=== PATIENT | female | born 1995 | race Hispanic/Latino ===

== ENCOUNTER 2018-04-24 21:11 | Inpatient (IN) | payer MEDICAID ==
[2018-04-24] MEDS ORDERED: XYLOCAINE 2% INFILTRATI ONE (21:17)
[2018-04-24] MEDS ORDERED: ePHEDrine SULFATE IV PRN (21:17)
[2018-04-24] MEDS ORDERED: CERVIDIL VG ONE (21:17)
[2018-04-24] MEDS ORDERED: MINERAL OIL PO PRN (21:17)
[2018-04-24] MEDS ORDERED: BRETHINE SUB-Q PRN (21:17)
[2018-04-24] MEDS ORDERED: ZOFRAN IV PRN (21:17)
[2018-04-24] MEDS ORDERED: AMBIEN PO PRN (21:22)
--- NOTE | 2018-04-24 21:28 | History and Physical Report ---
History of Present Illness Date of examination: 04/24/18 Chief complaint: IOL @ 41+2 weeks History of present illness: EDC Calculations by LMP: 04/15/2018 Past History : 2 Para: 0 Aborta: 1 Elect. 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 Infection History Hx of STD: none HIV Risk Eval: no Hepatitis B Risk Eval: low risk Personal hx. of genital herpes: no Partner hx. of genital herpes: no Rash, Viral, or Febrile illness since last LMP? no Varicella/Chicken Pox Status: Immunized TB Risk: no Genetic History Congenital Heart Defect: Mom: no Dad: no Rafaela Disease: Mom: no Dad: no Thalassemia Mom: no Dad: no Neural Tube Defect Mom: no Dad: no Down's Syndrome Mom: no Dad: no Miky-Sachs Mom: no Dad: no Sickle Cell Disease/Trait Mom: no Dad: no Hemophilia Mom: no Dad: no Muscular Dystrophy Mom: no Dad: no Cystic Fibrosis Mom: no Dad: no [place] Chorea Mom: no Dad: no Mental Retardation Mom: no Dad: no Fragile X Mom: no Dad: no Other Genetic/Chromosomal Disorder Mom: no Dad: no Child w/other defect Mom: no Dad: no Enviromental Exposures Xray Exposure: no Medication, drug, or alcohol use since LMP: no Chemical/Other Exposure: no Exposure to Cat Liter: no Hx of Parvovirus (Fifth Disease): no Occupational Exposure to Children: none Active Medications (reviewed today): None Current Allergies (reviewed today): No known allergies Past History Past Medical History: other (see HPI) Past Surgical History: other (see HPI) 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) Family/Genetic History: other (see HPI) - Obstetrical History Expected Date of Delivery: 04/15/18 Actual Gestation: 41 Week(s) 3 Day(s) : 2 Para: 0 Hx # Term Pregnancies: 0 Number of Pregnancies: 0 Spontaneous Abortions: 1 Induced : 0 Number of Living Children: 0 Medications and Allergies Allergies Allergy/AdvReac Type Severity Reaction Status Date / Time No Known Allergies Allergy Unverified 04/24/18 22:16 Home Medications Medication Instructions Recorded Confirmed Last Taken Type Pnv No.95/Ferrous Fum/Folic AC 1 tab PO QDAY 04/25/18 04/25/18 04/18/18 19:00 History [ Vitamins Tablet] Active Meds: Active Medications Dinoprostone (Cervidil) 10 mg VG ONCE ONE Stop: 04/24/18 21:18 Ephedrine Sulfate (Ephedrine Sulfate) 10 mg IV Q2M PRN PRN Reason: Hypotension Lactated Ringer's (Lactated Ringers) 1,000 mls @ 125 mls/hr IV DIRECT SAULO Oxytocin/Sodium Chloride (Pitocin/Ns 20 Unit/1000ml Drip) 20 units in 1,000 mls @ 125 mls/hr IV DIRECT SAULO Lidocaine (Xylocaine 2%) 20 ml INFILTRATI ONCE ONE Stop: 04/24/18 21:18 Mineral Oil (Mineral Oil) 30 ml PO QHS PRN PRN Reason: Constipation Ondansetron HCl (Zofran) 4 mg IV Q8H PRN PRN Reason: Nausea And Vomiting Terbutaline Sulfate (Brethine) 0.25 mg SUB-Q ONCE PRN PRN Reason: Hyperstimulation/Hypertonicity Zolpidem Tartrate (Ambien) 10 mg PO QHS PRN PRN Reason: Insomnia Review of Systems All systems: negative - Physical Exam Cardiovascular: Regular rate Lungs: Positive: Clear to auscultation, Normal air movement Abdomen: Positive: normal appearance, soft Genitourinary (Female): Positive: normal external genitalia Vulva: both: normal Vagina: Positive: normal moisture Uterus: Positive: normal size - Obstetrical FHR: auscultation normal Uterine Contraction Monitor Mode: External Results Result Diagrams: 04/24/18 22:00 All other labs normal. Assessment and Plan 23y/o @ 41+2 weeks admitted to L&D for IOL d/t post dates. GBS NEG, U/S EFW in office yesterday 4290gm (9#7oz) and cephalic. Plan for nurses to place cervidil when staffing allows. Continuous EFM/TOCO, Ambien for sleep PRN. Admission orders in EMR. Dr. Jimenez consulted and aware of plan of care. - Patient Problems (1) 41 weeks gestation of Onset Date: ~04/25/18 Current Visit: Yes Status: Acute
[2018-04-24] MEDS ORDERED: PITOCin/NS 20 UNIT/1000ML DRIP 20 UNITS/1,000 ML BAG IV SCH (22:00)
[2018-04-24 22:27] LABS: Hematocrit 35.4 % (30.3-42.9); Hemoglobin 12.6 gm/dl (10.1-14.3); Mean Corpuscular HGB Conc 36 % (30-34); Mean Corpuscular Hemoglobin 32 pg (28-32); Mean Corpuscular Volume 90 fl (79-97); Platelet Count 197 K/mm3 (140-440); Red Blood Count 3.93 M/mm3 (3.65-5.03); Red Cell Distribution Width 13.5 % (13.2-15.2)
[2018-04-25] MEDS: LACTATED RINGERS 1,000 ML IV SCH ×2 (00:30→13:41)
--- NOTE | 2018-04-25 06:16 | Progress Note ---
Assessment and Plan - Patient Problems (1) 41 weeks gestation of Onset Date: ~04/25/18 Current Visit: Yes Status: Acute Plan to address problem: Cervidil to be removed @ 1130 Will allow AM care and diet. Will make plan for cervidil or pitocin after Cervidil is removed. Reviewed POC with pt Discussed multi day induction Subjective - Subjective Date of service: 04/25/18 (pt resting; states ctx wake her but she can go back to sleep) Patient reports: movement normal Objective - Vital Signs Vital Signs: Vital Signs - 12hr 04/24/18 04/24/18 04/24/18 21:39 21:43 21:48 Temperature 97.8 F Pulse Rate 89 85 84 Respiratory 18 Rate Blood Pressure Blood Pressure 114/63 [Left] O2 Sat by Pulse 98 97 Oximetry 04/24/18 04/24/18 04/24/18 21:53 21:58 22:03 Temperature Pulse Rate 87 90 89 Respiratory Rate Blood Pressure Blood Pressure [Left] O2 Sat by Pulse 98 98 98 Oximetry 04/24/18 04/24/18 04/24/18 22:08 22:18 22:23 Temperature Pulse Rate 87 85 86 Respiratory Rate Blood Pressure Blood Pressure [Left] O2 Sat by Pulse 97 97 97 Oximetry 04/24/18 04/24/18 04/24/18 22:28 22:33 22:38 Temperature Pulse Rate 85 84 86 Respiratory Rate Blood Pressure Blood Pressure [Left] O2 Sat by Pulse 98 97 98 Oximetry 04/24/18 04/24/18 04/24/18 22:43 22:48 22:53 Temperature Pulse Rate 89 97 H 88 Respiratory Rate Blood Pressure Blood Pressure [Left] O2 Sat by Pulse 97 97 97 Oximetry 04/24/18 04/24/18 04/24/18 22:58 23:27 23:32 Temperature Pulse Rate 83 91 H 93 H Respiratory Rate Blood Pressure Blood Pressure [Left] O2 Sat by Pulse 97 97 97 Oximetry 04/24/18 04/24/18 04/24/18 23:37 23:42 23:47 Temperature Pulse Rate 90 91 H 99 H Respiratory Rate Blood Pressure Blood Pressure [Left] O2 Sat by Pulse 96 96 96 Oximetry 04/24/18 04/24/18 04/25/18 23:52 23:57 00:02 Temperature Pulse Rate 78 90 88 Respiratory Rate Blood Pressure Blood Pressure [Left] O2 Sat by Pulse 97 96 96 Oximetry 04/25/18 04/25/18 04/25/18 00:07 00:12 00:17 Temperature Pulse Rate 83 88 81 Respiratory Rate Blood Pressure Blood Pressure [Left] O2 Sat by Pulse 95 97 96 Oximetry 04/25/18 04/25/18 04/25/18 00:22 00:27 00:30 Temperature Pulse Rate 85 85 83 Respiratory Rate Blood Pressure 109/72 Blood Pressure [Left] O2 Sat by Pulse 96 97 Oximetry 04/25/18 04/25/18 04/25/18 00:31 00:32 00:37 Temperature 98.2 F Pulse Rate 86 86 Respiratory Rate Blood Pressure Blood Pressure [Left] O2 Sat by Pulse 96 96 Oximetry 04/25/18 04/25/18 04/25/18 00:42 00:47 00:52 Temperature Pulse Rate 84 83 82 Respiratory Rate Blood Pressure Blood Pressure [Left] O2 Sat by Pulse 96 97 99 Oximetry 04/25/18 04/25/18 04/25/18 00:57 01:02 01:07 Temperature Pulse Rate 81 81 86 Respiratory Rate Blood Pressure Blood Pressure [Left] O2 Sat by Pulse 97 97 97 Oximetry 04/25/18 04/25/18 04/25/18 01:12 01:17 01:22 Temperature Pulse Rate 81 79 81 Respiratory Rate Blood Pressure Blood Pressure [Left] O2 Sat by Pulse 97 98 99 Oximetry 04/25/18 04/25/18 04/25/18 01:27 01:31 01:32 Temperature Pulse Rate 80 78 85 Respiratory Rate Blood Pressure 119/68 Blood Pressure [Left] O2 Sat by Pulse 98 96 Oximetry 04/25/18 04/25/18 04/25/18 01:37 01:42 01:47 Temperature Pulse Rate 84 86 73 Respiratory Rate Blood Pressure Blood Pressure [Left] O2 Sat by Pulse 96 96 97 Oximetry 04/25/18 04/25/18 04/25/18 01:52 01:57 02:02 Temperature Pulse Rate 79 73 77 Respiratory Rate Blood Pressure Blood Pressure [Left] O2 Sat by Pulse 96 98 98 Oximetry 04/25/18 04/25/18 04/25/18 02:07 02:12 02:17 Temperature Pulse Rate 76 75 75 Respiratory Rate Blood Pressure Blood Pressure [Left] O2 Sat by Pulse 98 99 98 Oximetry 04/25/18 04/25/18 04/25/18 02:22 02:27 02:31 Temperature 97.6 F Pulse Rate 79 73 75 Respiratory 16 Rate Blood Pressure 115/66 Blood Pressure 115/66 [Left] O2 Sat by Pulse 98 98 Oximetry 04/25/18 04/25/18 04/25/18 02:32 02:37 02:42 Temperature Pulse Rate 74 81 78 Respiratory Rate Blood Pressure Blood Pressure [Left] O2 Sat by Pulse 98 99 98 Oximetry 04/25/18 04/25/18 04/25/18 02:47 02:52 02:57 Temperature Pulse Rate 77 83 78 Respiratory Rate Blood Pressure Blood Pressure [Left] O2 Sat by Pulse 98 97 98 Oximetry 04/25/18 04/25/18 04/25/18 03:02 03:07 03:12 Temperature Pulse Rate 76 81 88 Respiratory Rate Blood Pressure Blood Pressure [Left] O2 Sat by Pulse 97 96 96 Oximetry 04/25/18 04/25/18 04/25/18 03:17 03:20 03:22 Temperature Pulse Rate 73 80 77 Respiratory Rate Blood Pressure Blood Pressure [Left] O2 Sat by Pulse 97 94 97 Oximetry 04/25/18 04/25/18 04/25/18 03:27 03:30 03:32 Temperature Pulse Rate 85 73 87 Respiratory Rate Blood Pressure 110/56 Blood Pressure [Left] O2 Sat by Pulse 96 97 Oximetry 04/25/18 04/25/18 04/25/18 03:37 03:42 03:47 Temperature Pulse Rate 78 79 78 Respiratory Rate Blood Pressure Blood Pressure [Left] O2 Sat by Pulse 97 95 97 Oximetry 04/25/18 04/25/18 04/25/18 03:52 03:57 04:02 Temperature Pulse Rate 84 85 90 Respiratory Rate Blood Pressure Blood Pressure [Left] O2 Sat by Pulse 99 98 94 Oximetry 04/25/18 04/25/18 04/25/18 04:03 04:07 04:12 Temperature Pulse Rate 91 H 85 98 H Respiratory Rate Blood Pressure Blood Pressure [Left] O2 Sat by Pulse 94 96 95 Oximetry 04/25/18 04/25/18 04/25/18 04:38 04:43 04:48 Temperature Pulse Rate 80 79 87 Respiratory Rate Blood Pressure Blood Pressure [Left] O2 Sat by Pulse 97 96 96 Oximetry 08/10/1204/25/18 04/25/18 04:53 04:58 05:03 Temperature Pulse Rate 81 88 88 Respiratory Rate Blood Pressure Blood Pressure [Left] O2 Sat by Pulse 96 97 100 Oximetry 04/25/18 04/25/18 04/25/18 05:08 05:13 05:18 Temperature Pulse Rate 97 H 95 H 78 Respiratory Rate Blood Pressure Blood Pressure [Left] O2 Sat by Pulse 98 98 96 Oximetry 04/25/18 04/25/18 04/25/18 05:23 05:28 05:33 Temperature Pulse Rate 78 81 82 Respiratory Rate Blood Pressure Blood Pressure [Left] O2 Sat by Pulse 98 96 96 Oximetry 04/25/18 04/25/18 04/25/18 05:38 05:43 05:48 Temperature Pulse Rate 80 81 78 Respiratory Rate Blood Pressure Blood Pressure [Left] O2 Sat by Pulse 96 96 96 Oximetry 04/25/18 04/25/18 04/25/18 05:53 05:58 06:03 Temperature Pulse Rate 81 82 81 Respiratory Rate Blood Pressure Blood Pressure [Left] O2 Sat by Pulse 96 95 96 Oximetry 04/25/18 04/25/18 06:08 06:13 Temperature Pulse Rate 99 H 99 H Respiratory Rate Blood Pressure Blood Pressure [Left] O2 Sat by Pulse 96 98 Oximetry - Exam Breasts: deferred Cardiovascular: Regular rate Lungs: Normal air movement Abdomen: Present: normal appearance, soft. Absent: distention, tenderness Uterus: Present: normal FHR: auscultation normal, category 1 Uterine Contraction Monitor Mode: External Uterine Contraction Pattern: Irregular Uterine Tone Measurement Phase: Resting Uterine Contraction Intensity: Mild Extremities: normal Deep Tendon Reflex Grade: Normal +2 - Labs Labs: Abnormal Labs 04/24/18 22:00 WBC 14.8 H MCHC 36 H Laboratory Results - last 24 hr 04/24/18 04/24/18 22:00 22:00 WBC 14.8 H RBC 3.93 Hgb 12.6 Hct 35.4 MCV 90 MCH 32 MCHC 36 H RDW 13.5 Plt Count 197 Blood Type O POSITIVE Antibody Screen Negative
[2018-04-25] MEDS ORDERED: STADOL IV PRN (09:28)
--- NOTE | 2018-04-25 12:41 | Progress Note ---
Assessment and Plan - Patient Problems (1) 41 weeks gestation of Onset Date: ~04/25/18 Current Visit: Yes Status: Acute Plan to address problem: pt c/o increased pain SVE 6,100,-2 BBOW Will bolus for epidural Discussed with pt and SO that the position of the head is still high, there is concern that operative delivery may still be required. All questions addressed. Will re- eval after epidural. Subjective - Subjective Date of service: 04/25/18 (pt c/o increased pain) Patient reports: movement normal, contractions Objective - Vital Signs Vital Signs: Vital Signs - 12hr 04/25/18 04/25/18 04/25/18 00:42 00:47 00:52 Temperature Pulse Rate 84 83 82 Respiratory Rate Blood Pressure Blood Pressure [Left] O2 Sat by Pulse 96 97 99 Oximetry 04/25/18 04/25/18 04/25/18 00:57 01:02 01:07 Temperature Pulse Rate 81 81 86 Respiratory Rate Blood Pressure Blood Pressure [Left] O2 Sat by Pulse 97 97 97 Oximetry 04/25/18 04/25/18 04/25/18 01:12 01:17 01:22 Temperature Pulse Rate 81 79 81 Respiratory Rate Blood Pressure Blood Pressure [Left] O2 Sat by Pulse 97 98 99 Oximetry 04/25/18 04/25/18 04/25/18 01:27 01:31 01:32 Temperature Pulse Rate 80 78 85 Respiratory Rate Blood Pressure 119/68 Blood Pressure [Left] O2 Sat by Pulse 98 96 Oximetry 04/25/18 04/25/18 04/25/18 01:37 01:42 01:47 Temperature Pulse Rate 84 86 73 Respiratory Rate Blood Pressure Blood Pressure [Left] O2 Sat by Pulse 96 96 97 Oximetry 04/25/18 04/25/18 04/25/18 01:52 01:57 02:02 Temperature Pulse Rate 79 73 77 Respiratory Rate Blood Pressure Blood Pressure [Left] O2 Sat by Pulse 96 98 98 Oximetry 04/25/18 04/25/18 04/25/18 02:07 02:12 02:17 Temperature Pulse Rate 76 75 75 Respiratory Rate Blood Pressure Blood Pressure [Left] O2 Sat by Pulse 98 99 98 Oximetry 04/25/18 04/25/18 04/25/18 02:22 02:27 02:31 Temperature 97.6 F Pulse Rate 79 73 75 Respiratory 16 Rate Blood Pressure 115/66 Blood Pressure 115/66 [Left] O2 Sat by Pulse 98 98 Oximetry 04/25/18 04/25/18 04/25/18 02:32 02:37 02:42 Temperature Pulse Rate 74 81 78 Respiratory Rate Blood Pressure Blood Pressure [Left] O2 Sat by Pulse 98 99 98 Oximetry 04/25/18 04/25/18 04/25/18 02:47 02:52 02:57 Temperature Pulse Rate 77 83 78 Respiratory Rate Blood Pressure Blood Pressure [Left] O2 Sat by Pulse 98 97 98 Oximetry 04/25/18 04/25/18 04/25/18 03:02 03:07 03:12 Temperature Pulse Rate 76 81 88 Respiratory Rate Blood Pressure Blood Pressure [Left] O2 Sat by Pulse 97 96 96 Oximetry 04/25/18 04/25/18 04/25/18 03:17 03:20 03:22 Temperature Pulse Rate 73 80 77 Respiratory Rate Blood Pressure Blood Pressure [Left] O2 Sat by Pulse 97 94 97 Oximetry 04/25/18 04/25/18 04/25/18 03:27 03:30 03:32 Temperature Pulse Rate 85 73 87 Respiratory Rate Blood Pressure 110/56 Blood Pressure [Left] O2 Sat by Pulse 96 97 Oximetry 04/25/18 04/25/18 04/25/18 03:37 03:42 03:47 Temperature Pulse Rate 78 79 78 Respiratory Rate Blood Pressure Blood Pressure [Left] O2 Sat by Pulse 97 95 97 Oximetry 04/25/18 04/25/18 04/25/18 03:52 03:57 04:02 Temperature Pulse Rate 84 85 90 Respiratory Rate Blood Pressure Blood Pressure [Left] O2 Sat by Pulse 99 98 94 Oximetry 04/25/18 04/25/18 04/25/18 04:03 04:07 04:12 Temperature Pulse Rate 91 H 85 98 H Respiratory Rate Blood Pressure Blood Pressure [Left] O2 Sat by Pulse 94 96 95 Oximetry 04/25/18 04/25/18 04/25/18 04:38 04:43 04:48 Temperature Pulse Rate 80 79 87 Respiratory Rate Blood Pressure Blood Pressure [Left] O2 Sat by Pulse 97 96 96 Oximetry 04/25/18 04/25/18 04/25/18 04:53 04:58 05:03 Temperature Pulse Rate 81 88 88 Respiratory Rate Blood Pressure Blood Pressure [Left] O2 Sat by Pulse 96 97 100 Oximetry 04/25/18 04/25/18 04/25/18 05:08 05:13 05:18 Temperature Pulse Rate 97 H 95 H 78 Respiratory Rate Blood Pressure Blood Pressure [Left] O2 Sat by Pulse 98 98 96 Oximetry 04/25/18 04/25/18 04/25/18 05:23 05:28 05:33 Temperature Pulse Rate 78 81 82 Respiratory Rate Blood Pressure Blood Pressure [Left] O2 Sat by Pulse 98 96 96 Oximetry 04/25/18 04/25/18 04/25/18 05:38 05:43 05:48 Temperature Pulse Rate 80 81 78 Respiratory Rate Blood Pressure Blood Pressure [Left] O2 Sat by Pulse 96 96 96 Oximetry 04/25/18 04/25/18 04/25/18 05:53 05:58 06:03 Temperature Pulse Rate 81 82 81 Respiratory Rate Blood Pressure Blood Pressure [Left] O2 Sat by Pulse 96 95 96 Oximetry 04/25/18 04/25/18 04/25/18 06:08 06:13 06:18 Temperature Pulse Rate 99 H 99 H 83 Respiratory Rate Blood Pressure Blood Pressure [Left] O2 Sat by Pulse 96 98 95 Oximetry 04/25/18 04/25/18 04/25/18 06:23 06:25 06:28 Temperature Pulse Rate 85 82 84 Respiratory Rate Blood Pressure Blood Pressure [Left] O2 Sat by Pulse 96 94 95 Oximetry 04/25/18 04/25/18 04/25/18 06:31 06:33 06:37 Temperature Pulse Rate 89 85 86 Respiratory Rate Blood Pressure Blood Pressure [Left] O2 Sat by Pulse 94 95 94 Oximetry 04/25/18 04/25/18 04/25/18 06:38 06:43 06:48 Temperature Pulse Rate 86 112 H 86 Respiratory Rate Blood Pressure Blood Pressure [Left] O2 Sat by Pulse 95 95 96 Oximetry 04/25/18 04/25/18 04/25/18 06:53 06:58 07:03 Temperature Pulse Rate 83 88 92 H Respiratory Rate Blood Pressure Blood Pressure [Left] O2 Sat by Pulse 96 97 96 Oximetry 04/25/18 04/25/18 04/25/18 07:04 07:08 08:08 Temperature Pulse Rate 88 104 H 109 H Respiratory Rate Blood Pressure 120/56 116/56 Blood Pressure [Left] O2 Sat by Pulse 97 Oximetry 04/25/18 04/25/18 04/25/18 08:31 09:30 10:30 Temperature Pulse Rate 110 H 101 H 88 Respiratory Rate Blood Pressure 116/59 124/80 106/55 Blood Pressure [Left] O2 Sat by Pulse Oximetry 04/25/18 04/25/18 11:32 12:30 Temperature Pulse Rate 75 86 Respiratory Rate Blood Pressure 115/57 119/58 Blood Pressure [Left] O2 Sat by Pulse Oximetry - Exam Breasts: deferred Cardiovascular: Regular rate Lungs: Normal air movement Abdomen: Present: normal appearance, soft. Absent: distention, tenderness Uterus: Present: normal FHR: auscultation normal, category 1 Uterine Contraction Monitor Mode: External Cervical Dilatation: 6 (BBOW) Cervical Effacement Percentage: 100 (requesting epidural Bolus started) station: -2 Uterine Contraction Pattern: Regular Uterine Tone Measurement Phase: Contraction Uterine Contraction Intensity: Moderate Extremities: normal Deep Tendon Reflex Grade: Normal +2 - Labs Labs: Abnormal Labs 04/24/18 22:00 WBC 14.8 H MCHC 36 H Laboratory Results - last 24 hr 04/24/18 04/24/18 04/24/18 22:00 22:00 22:00 WBC 14.8 H RBC 3.93 Hgb 12.6 Hct 35.4 MCV 90 MCH 32 MCHC 36 H RDW 13.5 Plt Count 197 RPR Nonreactive Blood Type O POSITIVE Antibody Screen Negative
[2018-04-25] MEDS ORDERED: PITOCin/NS 30 UNIT/500ML 30 UNITS/500 ML BAG IV SCH (13:00)
[2018-04-25] MEDS ORDERED: ePHEDrine SULFATE IV PRN (14:34)
[2018-04-25] MEDS ORDERED: NARCAN 2 MG/2 ML IV PRN (14:34)
--- NOTE | 2018-04-25 14:34 | Anesthesia Consultation ---
Anesthesia Consult and Med Hx Date of service: 04/25/18 - Airway Anesthetic Teeth Evaluation: Good ROM Head & Neck: Adequate Mental/Hyoid Distance: Adequate Mallampati Class: Class II Intubation Access Assessment: Probably Good - Pre-Operative Health Status ASA Pre-Surgery Classification: ASA2 Proposed Anesthetic Plan: Epidural, Spinal - Pulmonary Hx Asthma: No Hx Pneumonia: No - Cardiovascular System Hx Hypertension: No - Central Nervous System Hx Seizures: No Hx Psychiatric Problems: No - Endocrine Hx Renal Disease: No Hx End Stage Renal Disease: No Hx Hypothyroidism: No Hx Hyperthyroidism: No - Hematic Hx Anemia: No Hx Sickle Cell Disease: No - Other Systems Hx Alcohol Use: No Hx Obesity: Yes
--- NOTE | 2018-04-25 14:39 | Progress Note ---
Assessment and Plan - Patient Problems (1) 41 weeks gestation of Onset Date: ~04/25/18 Current Visit: Yes Status: Acute Plan to address problem: Comfortable with epidural SVE 7,100,-2 Start pitocin per protocol. Re-eval as needed Subjective - Subjective Date of service: 04/25/18 (SROM thick meconium; comfortable with epidural) Patient reports: movement normal, contractions Objective - Vital Signs Vital Signs: Vital Signs - 12hr 04/25/18 04/25/18 04/25/18 02:42 02:47 02:52 Pulse Rate 78 77 83 Blood Pressure O2 Sat by Pulse 98 98 97 Oximetry 04/25/18 04/25/18 04/25/18 02:57 03:02 03:07 Pulse Rate 78 76 81 Blood Pressure O2 Sat by Pulse 98 97 96 Oximetry 04/25/18 04/25/18 04/25/18 03:12 03:17 03:20 Pulse Rate 88 73 80 Blood Pressure O2 Sat by Pulse 96 97 94 Oximetry 04/25/18 04/25/18 04/25/18 03:22 03:27 03:30 Pulse Rate 77 85 73 Blood Pressure 110/56 O2 Sat by Pulse 97 96 Oximetry 04/25/18 04/25/18 04/25/18 03:32 03:37 03:42 Pulse Rate 87 78 79 Blood Pressure O2 Sat by Pulse 97 97 95 Oximetry 04/25/18 04/25/18 04/25/18 03:47 03:52 03:57 Pulse Rate 78 84 85 Blood Pressure O2 Sat by Pulse 97 99 98 Oximetry 04/25/18 04/25/18 04/25/18 04:02 04:03 04:07 Pulse Rate 90 91 H 85 Blood Pressure O2 Sat by Pulse 94 94 96 Oximetry 04/25/18 04/25/18 04/25/18 04:12 04:38 04:43 Pulse Rate 98 H 80 79 Blood Pressure O2 Sat by Pulse 95 97 96 Oximetry 04/25/18 04/25/18 04/25/18 04:48 04:53 04:58 Pulse Rate 87 81 88 Blood Pressure O2 Sat by Pulse 96 96 97 Oximetry 04/25/18 04/25/18 04/25/18 05:03 05:08 05:13 Pulse Rate 88 97 H 95 H Blood Pressure O2 Sat by Pulse 100 98 98 Oximetry 04/25/18 04/25/18 04/25/18 05:18 05:23 05:28 Pulse Rate 78 78 81 Blood Pressure O2 Sat by Pulse 96 98 96 Oximetry 04/25/18 04/25/18 04/25/18 05:33 05:38 05:43 Pulse Rate 82 80 81 Blood Pressure O2 Sat by Pulse 96 96 96 Oximetry 04/25/18 04/25/18 04/25/18 05:48 05:53 05:58 Pulse Rate 78 81 82 Blood Pressure O2 Sat by Pulse 96 96 95 Oximetry 04/25/18 04/25/18 04/25/18 06:03 06:08 06:13 Pulse Rate 81 99 H 99 H Blood Pressure O2 Sat by Pulse 96 96 98 Oximetry 04/25/18 04/25/18 04/25/18 06:18 06:23 06:25 Pulse Rate 83 85 82 Blood Pressure O2 Sat by Pulse 95 96 94 Oximetry 04/25/18 04/25/18 04/25/18 06:28 06:31 06:33 Pulse Rate 84 89 85 Blood Pressure O2 Sat by Pulse 95 94 95 Oximetry 04/25/18 04/25/18 04/25/18 06:37 06:38 06:43 Pulse Rate 86 86 112 H Blood Pressure O2 Sat by Pulse 94 95 95 Oximetry 04/25/18 04/25/18 04/25/18 06:48 06:53 06:58 Pulse Rate 86 83 88 Blood Pressure O2 Sat by Pulse 96 96 97 Oximetry 04/25/18 04/25/18 04/25/18 07:03 07:04 07:08 Pulse Rate 92 H 88 104 H Blood Pressure 120/56 O2 Sat by Pulse 96 97 Oximetry 04/25/18 04/25/18 04/25/18 08:08 08:31 09:30 Pulse Rate 109 H 110 H 101 H Blood Pressure 116/56 116/59 124/80 O2 Sat by Pulse Oximetry 04/25/18 04/25/18 04/25/18 10:30 11:32 12:30 Pulse Rate 88 75 86 Blood Pressure 106/55 115/57 119/58 O2 Sat by Pulse Oximetry 04/25/18 04/25/18 04/25/18 13:33 14:06 14:11 Pulse Rate 88 95 H 96 H Blood Pressure 115/70 119/61 O2 Sat by Pulse 96 97 Oximetry 04/25/18 04/25/18 04/25/18 14:16 14:21 14:26 Pulse Rate 92 H 98 H 91 H Blood Pressure O2 Sat by Pulse 97 96 97 Oximetry 04/25/18 04/25/18 04/25/18 14:29 14:31 14:32 Pulse Rate 83 94 H 98 H Blood Pressure 118/65 108/70 O2 Sat by Pulse 97 Oximetry 04/25/18 04/25/18 04/25/18 14:35 14:36 14:38 Pulse Rate 94 H 94 H 106 H Blood Pressure 113/68 106/61 O2 Sat by Pulse 97 Oximetry - Exam Breasts: deferred Cardiovascular: Regular rate Lungs: Normal air movement Abdomen: Present: normal appearance, soft. Absent: distention, tenderness Uterus: Present: normal FHR: auscultation normal, category 1 Uterine Contraction Monitor Mode: External Cervical Dilatation: 7 (thick meconium; SROM) Cervical Effacement Percentage: 100 station: -2 Uterine Contraction Pattern: Irregular Uterine Tone Measurement Phase: Resting Uterine Contraction Intensity: Mild Extremities: normal Deep Tendon Reflex Grade: Normal +2 - Labs Labs: Abnormal Labs 04/24/18 22:00 WBC 14.8 H MCHC 36 H Laboratory Results - last 24 hr 04/24/18 04/24/18 04/24/18 22:00 22:00 22:00 WBC 14.8 H RBC 3.93 Hgb 12.6 Hct 35.4 MCV 90 MCH 32 MCHC 36 H RDW 13.5 Plt Count 197 RPR Nonreactive Blood Type O POSITIVE Antibody Screen Negative
[2018-04-25] MEDS ORDERED: fentaNYL-BUPIV 2 MCG/ML-0.125% 200 MCG/100 ML BAG EPIDURAL SCH (15:00)
--- NOTE | 2018-04-25 16:21 | Progress Note ---
Assessment and Plan - Patient Problems (1) 41 weeks gestation of Onset Date: ~04/25/18 Current Visit: Yes Status: Acute Plan to address problem: Ctx not recording well Internal monitors placed SVE 7,100,0 Pit @ 12mu Re-eval as needed. Subjective - Subjective Date of service: 04/25/18 (comfortable with epidural) Patient reports: movement normal, contractions Objective - Vital Signs Vital Signs: Vital Signs - 12hr 04/25/18 04/25/18 04/25/18 04:38 04:43 04:48 Pulse Rate 80 79 87 Blood Pressure O2 Sat by Pulse 97 96 96 Oximetry 04/25/18 04/25/18 04/25/18 04:53 04:58 05:03 Pulse Rate 81 88 88 Blood Pressure O2 Sat by Pulse 96 97 100 Oximetry 04/25/18 04/25/18 04/25/18 05:08 05:13 05:18 Pulse Rate 97 H 95 H 78 Blood Pressure O2 Sat by Pulse 98 98 96 Oximetry 04/25/18 04/25/18 04/25/18 05:23 05:28 05:33 Pulse Rate 78 81 82 Blood Pressure O2 Sat by Pulse 98 96 96 Oximetry 04/25/18 04/25/18 04/25/18 05:38 05:43 05:48 Pulse Rate 80 81 78 Blood Pressure O2 Sat by Pulse 96 96 96 Oximetry 04/25/18 04/25/18 04/25/18 05:53 05:58 06:03 Pulse Rate 81 82 81 Blood Pressure O2 Sat by Pulse 96 95 96 Oximetry 04/25/18 04/25/18 04/25/18 06:08 06:13 06:18 Pulse Rate 99 H 99 H 83 Blood Pressure O2 Sat by Pulse 96 98 95 Oximetry 04/25/18 04/25/18 04/25/18 06:23 06:25 06:28 Pulse Rate 85 82 84 Blood Pressure O2 Sat by Pulse 96 94 95 Oximetry 04/25/18 04/25/18 04/25/18 06:31 06:33 06:37 Pulse Rate 89 85 86 Blood Pressure O2 Sat by Pulse 94 95 94 Oximetry 04/25/18 04/25/18 04/25/18 06:38 06:43 06:48 Pulse Rate 86 112 H 86 Blood Pressure O2 Sat by Pulse 95 95 96 Oximetry 04/25/18 04/25/18 04/25/18 06:53 06:58 07:03 Pulse Rate 83 88 92 H Blood Pressure O2 Sat by Pulse 96 97 96 Oximetry 04/25/18 04/25/18 04/25/18 07:04 07:08 08:08 Pulse Rate 88 104 H 109 H Blood Pressure 120/56 116/56 O2 Sat by Pulse 97 Oximetry 04/25/18 04/25/18 04/25/18 08:31 09:30 10:30 Pulse Rate 110 H 101 H 88 Blood Pressure 116/59 124/80 106/55 O2 Sat by Pulse Oximetry 04/25/18 04/25/18 04/25/18 11:32 12:30 13:33 Pulse Rate 75 86 88 Blood Pressure 115/57 119/58 115/70 O2 Sat by Pulse Oximetry 04/25/18 04/25/18 04/25/18 14:06 14:11 14:16 Pulse Rate 95 H 96 H 92 H Blood Pressure 119/61 O2 Sat by Pulse 96 97 97 Oximetry 04/25/18 04/25/18 04/25/18 14:21 14:26 14:29 Pulse Rate 98 H 91 H 83 Blood Pressure 118/65 O2 Sat by Pulse 96 97 Oximetry 04/25/18 04/25/18 04/25/18 14:31 14:32 14:35 Pulse Rate 94 H 98 H 94 H Blood Pressure 108/70 113/68 O2 Sat by Pulse 97 Oximetry 04/25/18 04/25/18 04/25/18 14:36 14:38 14:40 Pulse Rate 94 H 106 H 100 H Blood Pressure 106/61 106/62 O2 Sat by Pulse 97 Oximetry 04/25/18 04/25/18 04/25/18 14:41 14:43 14:46 Pulse Rate 107 H 108 H 89 Blood Pressure 104/55 111/65 O2 Sat by Pulse 97 98 Oximetry 04/25/18 04/25/18 04/25/18 14:49 14:51 14:52 Pulse Rate 92 H 102 H 83 Blood Pressure 105/61 110/65 O2 Sat by Pulse 98 Oximetry 04/25/18 04/25/18 04/25/18 14:55 14:58 15:01 Pulse Rate 87 87 85 Blood Pressure 105/68 106/69 102/65 O2 Sat by Pulse Oximetry 04/25/18 04/25/18 04/25/18 15:04 15:07 15:10 Pulse Rate 84 91 H 81 Blood Pressure 101/62 105/66 100/59 O2 Sat by Pulse Oximetry 04/25/18 04/25/18 04/25/18 15:13 15:16 15:19 Pulse Rate 78 77 81 Blood Pressure 108/58 104/59 105/61 O2 Sat by Pulse Oximetry 04/25/18 04/25/18 04/25/18 15:22 15:26 15:29 Pulse Rate 85 81 80 Blood Pressure 105/61 109/73 105/58 O2 Sat by Pulse Oximetry 04/25/18 04/25/18 04/25/18 15:31 15:34 15:37 Pulse Rate 82 91 H 82 Blood Pressure 102/60 103/58 105/60 O2 Sat by Pulse Oximetry 04/25/18 04/25/18 04/25/18 15:40 15:43 15:46 Pulse Rate 76 78 81 Blood Pressure 100/60 101/62 103/65 O2 Sat by Pulse Oximetry 04/25/18 04/25/18 04/25/18 15:49 15:52 15:55 Pulse Rate 76 90 83 Blood Pressure 104/63 109/70 101/65 O2 Sat by Pulse Oximetry 04/25/18 04/25/18 04/25/18 15:58 16:01 16:04 Pulse Rate 80 78 81 Blood Pressure 104/64 106/68 104/66 O2 Sat by Pulse Oximetry 04/25/18 04/25/18 04/25/18 16:07 16:10 16:13 Pulse Rate 75 74 85 Blood Pressure 103/66 107/65 108/69 O2 Sat by Pulse Oximetry 04/25/18 04/25/18 16:16 16:19 Pulse Rate 74 85 Blood Pressure 109/68 115/66 O2 Sat by Pulse Oximetry - Exam Breasts: deferred Cardiovascular: Regular rate Lungs: Normal air movement Abdomen: Present: normal appearance, soft. Absent: distention, tenderness Uterus: Present: normal FHR: auscultation normal, category 1 Uterine Contraction Monitor Mode: Internal Cervical Dilatation: 7 (Internal monitors placed) Cervical Effacement Percentage: 100 station: 0 Uterine Contraction Pattern: Irregular Uterine Tone Measurement Phase: Resting Uterine Contraction Intensity: Moderate Extremities: normal Deep Tendon Reflex Grade: Normal +2 - Labs Labs: Abnormal Labs 04/24/18 22:00 WBC 14.8 H MCHC 36 H Laboratory Results - last 24 hr 04/24/18 04/24/18 04/24/18 22:00 22:00 22:00 WBC 14.8 H RBC 3.93 Hgb 12.6 Hct 35.4 MCV 90 MCH 32 MCHC 36 H RDW 13.5 Plt Count 197 RPR Nonreactive Blood Type O POSITIVE Antibody Screen Negative
[2018-04-25] MEDS ORDERED: BICITRA ONE ×2 (19:13→20:48)
[2018-04-25] MEDS ORDERED: REGLAN ONE (20:48)
[2018-04-25] MEDS ORDERED: PEPCID IV ONE ×2 (20:49→20:51)
[2018-04-25] MEDS ORDERED: ANCEF/STERILE WATER 2 GM/20 ML 2 GM/20 ML SYRINGE IV ONE (20:49)
[2018-04-25] MEDS ORDERED: BICITRA PO ONE (20:51)
[2018-04-25] MEDS ORDERED: REGLAN IV ONE (20:51)
--- NOTE | 2018-04-25 20:55 | Event Note ---
Date: 04/25/18 Patient labor to 10 cm dilated 100% effaced but still was some -2 station. Patient did experience 1 prolonged deceleration resolved but the rest. She desired to try to have a vaginal delivery pushed approximately 1-1/2 hours with only descending to -1 station with caput. I discussed with the patient thoroughly about the indication for and patient signed consent. Patient states now that she is fatigued and desires to move forward with section.Patient informed the risks of the surgery include bleeding possibly bleeding heavy enough to require blood transfusion, infection possible damage to bowel bladder ureter. All questions answered. Patient agrees to proceed
[2018-04-25] MEDS ORDERED: NACL 0.9% IR ONE (21:20)
[2018-04-25] MEDS ORDERED: WATER FOR IRRIG STERILE IR ONE (21:20)
[2018-04-25] MEDS ORDERED: XYLOCAINE MPF 2% ONE ×4 (21:24→21:33)
[2018-04-25] MEDS ORDERED: ANCEF/STERILE WATER 2 GM/20 ML IV ONE (21:32)
[2018-04-25] MEDS ORDERED: METHERGINE IM ONE ×2 (21:52→23:06)
[2018-04-25] MEDS ORDERED: BREVIBLOC IV ONE (22:00)
[2018-04-25] MEDS ORDERED: ZOFRAN ONE (22:00)
[2018-04-25] MEDS ORDERED: ZOFRAN IV PRN (22:37)
[2018-04-25] MEDS ORDERED: PHENERGAN PO PRN (22:37)
[2018-04-25] MEDS ORDERED: NARCAN 0.4 MG/1 ML IV PRN (22:37)
[2018-04-25] MEDS ORDERED: DILAUDID IV PRN ×2 (22:37)
[2018-04-25] MEDS ORDERED: PHENERGAN PR PRN (22:37)
--- NOTE | 2018-04-25 22:38 | Operative Report ---
Operative Report Operative Report: Date of procedure: 04/25/2018 Pre-operative diagnosis:. Intrauterine at 41 weeks, arrest of descent Post-operative diagnosis: Same plus macrosomia Procedure name(s): Primary low transverse section Surgeon: Bossman Atkinson MD Import Clerk: Anesthesia: Epidural EBL: 1000 mL Complications: Uterine atony, laceration of the right uterine artery Findings: Normal uterus tubes and ovaries bilaterally. Male weight 9 lbs. 2 oz. Apgars 8 at 1 minute 9 at 5 minutes Specimen(s): None Procedure: The patient was brought to the operating room. A epidural was dosed to adequate level. She was then placed in left lateral tilt. Prepped and draped in the usual sterile manner. After testing for adequate anesthesia level , a Pfannenstiel incision was made. This incision was taken down to the fascia. The fascia was then nicked in the midline. This incision was extended out laterally with Cardenas scissors. The fascia was then sharply and bluntly from the underlying rectus muscles. The rectus muscles were bluntly and sharply . The peritoneum was then entered with the precision lathe operator's fingers. This incision was spread vertically with care not to damage the bladder below. The bladder flap was then formed sharply and bluntly with Metzenbaum scissors. The Mark self-retaining tractor was then placed without any difficulty. A transverse incision was made in lower uterine segment. This incision was extended laterally with the operators fingers. The amniotic sac was then entered bluntly with the precision lathe operator's fingers. The infant was delivered from the vertex position. Bulb suction on the mother's abdomen. Cord was double clamped and cut. The infant was then passed to the nursery personnel who were in attendance. The above scores were given by the nursery personnel. The placenta was then bluntly removed. The uterus was then externalized and wiped clean the remaining products. The uterine artery laceration was seen and repair with [place] stitch. The uterine incision was closed in layers. The first incision was closed in a locking manner using 0 Vicryl. This was followed by imbricating stitch also with 0 Vicryl. Uterus was boggy and Methergine was given. This closure was hemostatic. The bladder flap was copiously irrigated and found to be hemostatic. The pelvis was copiously irrigated and found to be hemostatic. The uterus was then placed back to the patient's abdomen. The retractors were removed. The rectus muscles were inspected and found to be hemostatic. The fascia was then closed in a running manner using 0 Vicryl. This incision was hemostatic irrigation Bovie. The skin was reapproximated with 4-0 Vicryl subcuticularly. The patient tolerated procedure well. Her urine was clear. The was admitted to the well baby nursery. The patient was accompanied to recovery room in good condition. Instrument count correct times 3.
[2018-04-25] MEDS ORDERED: TORADOL IV PRN (22:39)
[2018-04-25] MEDS ORDERED: TORADOL IV ONE (22:39)
[2018-04-25] MEDS ORDERED: SODIUM CHLORIDE FLUSH SYRINGE 10 ML IV NR (23:00)
[2018-04-26] MEDS ORDERED: SODIUM CHLORIDE FLUSH SYRINGE 10 ML IV NR (00:37)
[2018-04-26] MEDS ORDERED: LANSINOH TP PRN (00:37)
[2018-04-26] MEDS ORDERED: PITOCin/NS 20 UNIT/1000ML DRIP 20 UNITS/1,000 ML BAG IV SCH (00:37)
[2018-04-26] MEDS ORDERED: MILK OF MAGNESIA PO PRN (00:37)
[2018-04-26] MEDS ORDERED: NARCAN 0.4 MG/1 ML IV PRN (00:37)
[2018-04-26] MEDS ORDERED: TUCKS PAD TP PRN (00:37)
[2018-04-26] MEDS ORDERED: ZOFRAN IV PRN (00:37)
[2018-04-26] MEDS: ANCEF/NS 1 GM/50 ML 1 GM/50 ML BAG IV SCH ×2 (01:32→10:59)
[2018-04-26] MEDS: D5LR 1,000 ML IV SCH ×3 (01:33→18:22)
--- NOTE | 2018-04-26 06:44 | Progress Note ---
Assessment and Plan - Patient Problems (1) delivery delivered Onset Date: ~04/25/18 Current Visit: Yes Status: Acute Plan to address problem: Pt and SO sleeping VSS FF below umb Lochia small Dressing D&I H&H pending Stable s/p section P: continue pathway Advance diet and activity as tolerated. Subjective - Subjective Date of service: 04/26/18 (pt sleeping soundly Baby in nursery) Principal diagnosis: Day # 1 (<12hours) s/p section Patient reports: voiding normally (clear yellow urine to BSB) [place]: doing well Objective - Vital Signs Latest vital signs: Vital Signs Temp Pulse Resp BP BP Pulse Ox 04/26/18 04:15 99.5 F 124 H 18 108/62 04/26/18 00:00 99.4 F 116 H 18 112/72 04/25/18 23:30 115 H 21 110/70 96 04/25/18 23:25 105 H 18 114/67 97 04/25/18 23:20 99 H 24 110/71 97 04/25/18 23:19 100.4 F H 04/25/18 23:15 107 H 24 111/71 96 04/25/18 23:10 108 H 26 H 106/67 95 04/25/18 23:05 104 H 25 H 114/62 96 04/25/18 23:00 107 H 25 H 120/68 97 04/25/18 22:55 108 H 25 H 117/71 97 04/25/18 22:50 103 H 24 117/68 97 04/25/18 22:45 102 H 27 H 109/51 98 04/25/18 22:40 103 H 20 117/67 98 04/25/18 22:35 100 H 18 107/55 98 04/25/18 22:30 111 H 21 98 04/25/18 22:29 100 04/25/18 22:24 100.2 F H 04/25/18 20:59 112 H 108/74 04/25/18 20:14 86 118/62 04/25/18 19:59 98 H 120/60 04/25/18 19:44 96 H 116/69 04/25/18 19:29 99 H 115/68 04/25/18 19:13 95 H 110/60 04/25/18 19:11 88 116/64 04/25/18 19:09 98.1 F 18 04/25/18 19:07 86 98/51 04/25/18 19:04 81 91/55 04/25/18 19:01 80 101/50 04/25/18 18:59 85 101/50 04/25/18 18:56 90 108/60 04/25/18 18:52 99 H 101/57 04/25/18 18:50 88 113/55 04/25/18 18:46 97 H 112/71 04/25/18 18:43 93 H 114/74 04/25/18 18:40 82 111/68 04/25/18 18:37 84 109/65 04/25/18 18:35 101 H 99/61 04/25/18 18:31 82 107/64 04/25/18 18:29 96 H 106/61 04/25/18 18:25 107 H 102/61 04/25/18 18:22 80 104/63 04/25/18 18:19 83 107/66 04/25/18 18:16 78 106/67 04/25/18 18:13 81 107/67 04/25/18 18:10 81 107/68 04/25/18 18:07 86 107/66 04/25/18 18:04 82 103/61 04/25/18 18:01 81 109/66 04/25/18 17:59 86 112/74 04/25/18 17:55 78 106/62 04/25/18 17:52 81 111/66 04/25/18 17:49 81 111/63 04/25/18 17:46 94 H 111/59 04/25/18 17:44 90 112/69 04/25/18 17:40 95 H 107/61 04/25/18 17:37 81 116/66 04/25/18 17:34 78 103/63 04/25/18 17:31 82 108/67 04/25/18 17:28 82 107/68 04/25/18 17:25 78 104/68 04/25/18 17:22 80 107/74 04/25/18 17:19 84 103/71 04/25/18 17:17 77 107/68 04/25/18 17:13 80 104/58 04/25/18 17:10 78 106/61 04/25/18 17:07 98.5 F 81 104/59 08 17:04 76 103/59 08 17:01 75 107/61 04/25/18 16:58 75 108/60 08 16:55 76 104/59 04/25/18 16:52 77 105/61 04/25/18 16:49 74 107/62 04/25/18 16:46 75 107/61 04/25/18 16:43 77 107/59 04/25/18 16:40 82 106/58 04/25/18 16:37 70 105/61 04/25/18 16:34 74 102/62 04/25/18 16:31 81 108/63 04/25/18 16:29 81 106/60 04/25/18 16:25 77 112/66 04/25/18 16:22 85 112/64 04/25/18 16:19 85 115/66 04/25/18 16:16 74 109/68 04/25/18 16:13 85 108/69 04/25/18 16:10 74 107/65 04/25/18 16:07 75 103/66 04/25/18 16:04 81 104/66 04/25/18 16:01 78 106/68 04/25/18 15:58 80 104/64 04/25/18 15:55 83 101/65 04/25/18 15:52 90 109/70 04/25/18 15:49 76 104/63 04/25/18 15:46 81 103/65 04/25/18 15:43 78 101/62 04/25/18 15:40 76 100/60 08 15:37 82 105/60 04/25/18 15:34 91 H 103/58 04/25/18 15:31 82 102/60 04/25/18 15:29 80 105/58 04/25/18 15:26 81 109/73 04/25/18 15:22 85 105/61 04/25/18 15:19 81 105/61 04/25/18 15:16 77 104/59 04/25/18 15:13 78 108/58 04/25/18 15:10 81 100/59 04/25/18 15:07 91 H 105/66 04/25/18 15:04 84 101/62 04/25/18 15:01 85 102/65 04/25/18 14:58 87 106/69 04/25/18 14:55 87 105/68 04/25/18 14:52 83 110/65 04/25/18 14:51 102 H 98 04/25/18 14:49 92 H 105/61 04/25/18 14:46 89 111/65 98 04/25/18 14:43 108 H 104/55 04/25/18 14:41 107 H 97 04/25/18 14:40 100 H 106/62 04/25/18 14:38 106 H 106/61 04/25/18 14:36 94 H 97 04/25/18 14:35 94 H 113/68 04/25/18 14:32 98 H 108/70 04/25/18 14:31 94 H 97 04/25/18 14:29 83 118/65 04/25/18 14:26 91 H 97 04/25/18 14:21 98 H 96 04/25/18 14:16 92 H 97 04/25/18 14:11 96 H 97 04/25/18 14:06 95 H 119/61 96 04/25/18 13:33 88 115/70 04/25/18 12:30 86 119/58 04/25/18 11:32 75 115/57 04/25/18 10:30 88 106/55 04/25/18 09:30 101 H 124/80 04/25/18 08:31 110 H 116/59 04/25/18 08:08 109 H 116/56 04/25/18 08:00 98.7 F 04/25/18 07:08 104 H 97 04/25/18 07:04 88 120/56 04/25/18 07:03 92 H 96 04/25/18 06:58 88 97 04/25/18 06:53 83 96 04/25/18 06:48 86 96 04/25/18 06:43 112 H 95 Intake and Output 04/25/18 04/25/18 04/26/18 14:59 22:59 06:59 Intake Total 1000 1002.533 640 Output Total 100 650 Balance 1000 902.533 -10 Intake: IV 1000 1002.533 400 Lactated Ringers 1,000 ml 1000 @ 125 mls/hr IV DIRECT [facility] Rx#:[id number] PITOCin/NS 30 UNIT/500ML 2.533 30 units In 500 ml @ 4 MILLIUNITS/MIN 4 mls/hr IV Q30MIN [facility] Rx#: [id number] Oral 240 Output: Urine 100 650 Indwelling Catheter 600 Other: Total, Intake Amount 240 Total, Output Amount 600 Estimated Blood Loss 600 - Exam Breasts: Present: normal Cardiovascular: Present: Regular rate Lungs: Present: Normal air movement Abdomen: Present: normal appearance, soft Uterus: Present: normal, firm, fundal height below umbilicus Extremities: Present: normal Deep Tendon Reflex Grade: Normal +2 Incision: Present: normal, dry, intact, dressed
[2018-04-26] MEDS: TORADOL IV PRN ×2 (10:12→16:55)
[2018-04-26 11:40] LABS: Hematocrit 30.7 % (30.3-42.9); Hemoglobin 10.4 gm/dl (10.1-14.3)
[2018-04-26] MEDS: NORCO 5/325 PO PRN ×2 (15:00→22:22)
[2018-04-27] MEDS: MOTRIN PO PRN ×4 (00:32→20:22)
[2018-04-27] MEDS: NORCO 5/325 PO PRN ×3 (02:59→22:12)
[2018-04-27] MEDS: PRENATAL VITAMIN PO SCH (08:43)
[2018-04-27] MEDS: FEOSOL PO SCH (08:43)
--- NOTE | 2018-04-27 08:48 | Progress Note ---
Assessment and Plan patient doing well, no complaints. No flatus at this time, rn to give suppository. incision D&I, VSSAF, H&H stable, bottle feeding, Lochia scant. Continue postop pathway and anticipate d/c home tomorrow. - Patient Problems (1) delivery delivered Onset Date: ~04/25/18 Current Visit: Yes Status: Acute Subjective - Subjective Date of service: 04/27/18 Principal diagnosis: Day # 2 s/p section Interval history: EDC Calculations by LMP: 04/15/2018 Past History : 2 Para: 0 Aborta: 1 Elect. 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 Infection History Hx of STD: none HIV Risk Eval: no Hepatitis B Risk Eval: low risk Personal hx. of genital herpes: no Partner hx. of genital herpes: no Rash, Viral, or Febrile illness since last LMP? no Varicella/Chicken Pox Status: Immunized TB Risk: no Genetic History Congenital Heart Defect: Mom: no Dad: no Rafaela Disease: Mom: no Dad: no Thalassemia Mom: no Dad: no Neural Tube Defect Mom: no Dad: no Down's Syndrome Mom: no Dad: no Miky-Sachs Mom: no Dad: no Sickle Cell Disease/Trait Mom: no Dad: no Hemophilia Mom: no Dad: no Muscular Dystrophy Mom: no Dad: no Cystic Fibrosis Mom: no Dad: no [place] Chorea Mom: no Dad: no Mental Retardation Mom: no Dad: no Fragile X Mom: no Dad: no Other Genetic/Chromosomal Disorder Mom: no Dad: no Child w/other defect Mom: no Dad: no Enviromental Exposures Xray Exposure: no Medication, drug, or alcohol use since LMP: no Chemical/Other Exposure: no Exposure to Cat Liter: no Hx of Parvovirus (Fifth Disease): no Occupational Exposure to Children: none Active Medications (reviewed today): None Current Allergies (reviewed today): No known allergies Patient reports: appetite normal, voiding normally, pain well controlled, ambulating normally, no dizzy ambulation, no flatus, no nauseated : doing well, bottle feeding Objective - Vital Signs Latest vital signs: Vital Signs Temp Pulse Resp BP Pulse Ox 04/27/18 06:13 18 04/27/18 02:59 18 04/27/18 00:32 18 04/27/18 00:00 98.4 F 118 H 18 106/76 04/26/18 22:22 20 04/26/18 16:55 20 04/26/18 16:30 98.3 F 115 H 18 105/67 94 04/26/18 15:00 20 04/26/18 13:15 98.6 F 115 H 18 100/63 96 04/26/18 10:12 20 04/26/18 09:00 118 H Intake and Output 04/26/18 04/27/18 04/27/18 23:59 07:59 15:59 Intake Total 1360 240 Output Total 900 800 Balance 460 -560 Intake: IV 1000 D5lr 1,000 ml @ 125 mls/ 1000 hr IV DIRECT [facility] Rx#: [id number] Oral 360 240 Output: Urine 900 800 Void 900 800 Other: Total, Intake Amount 360 240 Total, Output Amount 900 800 - Exam Breasts: Present: normal Cardiovascular: Present: Regular rate Lungs: Present: Clear to auscultation, Normal air movement Abdomen: Present: normal appearance Vulva: both: normal Uterus: Present: normal, firm, fundal height at umbilicus Extremities: Present: normal Incision: Present: normal, dry, intact
[2018-04-27] MEDS ORDERED: DULCOLAX PR PRN (11:00)
[2018-04-28] MEDS: PRENATAL VITAMIN PO SCH (08:15)
[2018-04-28] MEDS: NORCO 5/325 PO PRN (08:15)
[2018-04-28] MEDS: FEOSOL PO SCH (08:15)
--- NOTE | 2018-04-28 09:10 | Discharge Summary ---
Providers - Providers Date of Admission: 04/24/18 21:21 Date of discharge: 04/28/18 (agrees with d/c ) Attending physician: OH RAND 04/26/18 00:37 Consult to Nurse Staff [CONS] Routine Reason For Exam: Primary care physician: OH RAND Hospitalization Reason for admission: induction of labor Delivery: Procedure: primary low transverse Episiotomy: none Laceration: none Incision: normal, dry, intact Other procedures: none complications: none Discharge diagnosis: IUP at term delivered [place] baby: male Hospital course: uncomplicated section Pt awake no c/o voiced VSS FF below umb Lochia scant Incision D&I H&H stable No s/sx of anemia Doing well s/p c/s P: d/c today with instructions RTO 1 week for postop and circ in 1 week. RX provided @ d/c Condition at discharge: Good Disposition: DC-01 TO HOME OR SELFCARE - Discharge Diagnoses (1) delivery delivered Status: Acute Comment: RTO 1 week postop Plan - Discharge Medications Prescriptions: Ferrous Sulfate [Feosol 325 MG tab] 325 mg PO BID #60 tablet Ibuprofen [Motrin 800 MG tab] 800 mg PO Q6H PRN #30 tablet PRN Reason: Pain Lidocain2.5%/Prilocai2.5% [Emla] 5 gm TP PRN #1 tube oxyCODONE /ACETAMINOPHEN [Percocet 5/325 mg] 1 - 2 tab PO Q4H PRN #30 tablet PRN Reason: Pain, Moderate - Provider Discharge Summary Activity: routine, no sex for 6 weeks, no heavy lifting 4 weeks, no strenuous exercise Diet: routine Instructions: routine Additional instructions: [] Smoking cessation referral if applicable(refer to patient education folder for contact #) [] Refer to [facility]'s [facility] Booklet Call your doctor immediately for: * Fever > 100.5 * Heavy vaginal bleeding ( >1 pad per hour) * Severe persistent headache * Shortness of breath * Reddened, hot, painful area to leg or breast * Drainage or odor from incision. * Keep incision clean and dry at all times and follow doctor's instructions regarding bathing/showering - Follow up plan Follow up: OH RAND MD [Primary Care Provider] - 7 Days (Congratulations! Please call [phone] to schedule your postoperative visit in 1 week. Schedule circumcision also in 1 week. Bring EMLA cream with you to his visit. Do not use at home. Take medications as prescribed. Call with concerns.)
[2018-04-28 11:46] VITALS: BP 117/72
== END 2018-04-28 15:30 | disposition home or self-care (01) | DRG 765 ==
LOC: TRG 21:11 → LD 21:21 → OB 04-26 00:34
PROVIDERS: ADMIT Obstetrics & Gynecology; ATTEND Obstetrics & Gynecology
PROC: 10D00Z1 Extraction of Products of Conception, Low, Open Approach (ICD-10-PCS; principal; 2018-04-25)
PROC: 10H07YZ Insertion of Other Device into Products of Conception, Via Natural or Artificial Opening (ICD-10-PCS; 2018-04-25)
PROC: 3E0P7VZ Introduction of Hormone into Female Reproductive, Via Natural or Artificial Opening (ICD-10-PCS; 2018-04-25)
PROC: 04QY0ZZ Repair Lower Artery, Open Approach (ICD-10-PCS; 2018-04-25)
DX: O48.0 Post-term pregnancy (principal); S35.53 Injury of uterine artery or vein; O99.214 Obesity complicating childbirth; E66.9 Obesity, unspecified; O62.2 Other uterine inertia; O76 Abnormality in fetal heart rate and rhythm complicating labor and delivery; O36.63X0 Maternal care for excessive fetal growth, third trimester, not applicable or unspecified; Z3A.41 41 weeks gestation of pregnancy; Z37.0 Single live birth; Z68.37 Body mass index [BMI] 37.0-37.9, adult; Z79.899 Other long term (current) drug therapy; Y83.8 Other surgical procedures as the cause of abnormal reaction of the patient, or of later complication, without mention of misadventure at the time of the procedure; Y92.234 Operating room of hospital as the place of occurrence of the external cause; O75.89 Other specified complications of labor and delivery
CPT/HCPCS: 36415; 59200; 85014; 85018; 85027; 86592; 86850; 86900; 86901; J0595; J0690; J1170; J1885; J2210; J2405; J2590; J2765; J7120; J7121

== ENCOUNTER 2019-07-03 11:58 | Outpatient (CLI) | payer MEDICAID ==
[2019-07-03 15:31] VITALS: BP 84/48
--- NOTE | 2019-07-03 17:37 | Ultrasound Report ---
ULTRASOUND BIOPHYSICAL PROFILE INDICATION / CLINICAL INFORMATION: DECELERATIONS. COMPARISON: None available. FINDINGS: BREATHING MOVEMENT = 2 GROSS BODY MOVEMENT = 2 TONE = 2 QUALITATIVE AMNIOTIC FLUID VOLUME = 2 TOTAL BIOPHYSICAL SCORE = 8/8 AMNIOTIC FLUID INDEX (cm) = 8.9 PRESENTATION: Cephalic. HEART RATE (beats per minute): 126 IMPRESSION: 1. biophysical profile = 8/8 2. Normal amniotic fluid index. Signer Name: Ariel Medina MD Signed: 07/03/2019 5:33 PM Workstation Name: [id number]
== END 2019-07-03 16:00 | disposition home or self-care (01) ==
LOC: TRG 11:58
PROVIDERS: ATTEND Obstetrics & Gynecology
DX: O36.8390 Maternal care for abnormalities of the fetal heart rate or rhythm, unspecified trimester, not applicable or unspecified (principal); Z3A.38 38 weeks gestation of pregnancy
CPT/HCPCS: 76815; 76819